=== PATIENT | male | born 1960 ===

== ENCOUNTER 2018-10-25 11:31 | Observation (INO) | payer MEDICAID, OTHER ==
[2018-10-25 14:54] LABS: BASO % 0.4 % (0.0-2.0); EOS # 0.2 K/uL (0.0-0.7); EOS % 3.6 % (0.0-4.0); HEMOGLOBIN 14.7 g/dL (12.0-18.0); LYMPH # 2.1 K/uL (1.0-4.3); LYMPH % 32.9 % (20.0-40.0); MEAN CELL VOLUME 94.1 fL (80.0-94.0); MEAN CORPUSCULAR HEMOGLOBIN 31.7 pg (27.0-31.0); MEAN CORPUSCULAR HGB CONC 33.7 g/dL (33.0-37.0); MEAN PLATELET VOLUME 9.7 fL (7.2-11.7); MONO # 0.7 K/uL (0.0-0.8); MONO % 11.1 % (0.0-10.0); NEUT # 3.2 K/uL (1.8-7.0); NRBC % 0.1 % (0.0-2.0); RBC 4.64 Mil/uL (4.40-5.90); RED CELL DISTRIBUTION WIDTH 13.1 % (11.5-14.5); WHITE BLOOD COUNT 6.2 K/uL (4.8-10.8)
--- NOTE | 2018-10-25 14:57 | RAD ---
Date of service: 10/25/2018 PROCEDURE: CHEST RADIOGRAPH, 1 VIEW HISTORY: CHEST PAIN COMPARISON: None available. FINDINGS: LUNGS: Clear. PLEURA: No pneumothorax or pleural fluid seen. CARDIOVASCULAR: No aortic atherosclerotic calcification present. Normal. OSSEOUS STRUCTURES: No significant abnormalities. VISUALIZED UPPER ABDOMEN: Normal. OTHER FINDINGS: None. IMPRESSION: No active disease.
[2018-10-25 15:02] LABS: PROTHROMBIN TIME 11.2 SECONDS (9.7-12.2)
[2018-10-25 15:47] LABS: ALB/GLOB RATIO 1.5 (1.0-2.1); ALBUMIN 3.7 g/dL (3.5-5.0); ALT/SGPT 26 U/L (21-72); AST/SGOT 48 U/L (17-59); BLOOD UREA NITROGEN 9 mg/dL (9-20); CALCIUM 7.9 mg/dl (8.6-10.4); GFR NON-AFRICAN AMERICAN > 60
[2018-10-25 16:18] LABS: CK-MB < 0.22 ng/mL (0.0-3.38)
[2018-10-25] MEDS ORDERED: Nitroglycerin 2% Ointment Foilpak UD TOP ONE (17:33)
[2018-10-25] MEDS ORDERED: Nitroglycerin 2% Ointment Foilpak UD TOP STA (17:43)
--- NOTE | 2018-10-25 17:44 | CP.PCM.HP ---
History of Present Illness - History of Present Illness History of Present Illness: PGY-1 History and Physical [address] Dr[address] Decker Patient is a 57 year old M with no significant past medical history originally from the [place] who presents to ED with constant substernal chest pain for "many weeks" with radiation to back and down L arm up to elbow. Patient states pain was sudden in onset, rates 7/10 in severity, with associated headache. He only took Advil and Motrin at home, which did not help alleviate pain. Denies fevers/chills, dizziness, acute changes in vision, palpitations, sob, cough, abdominal pain, n/v/d/c, dysuria, or changes in stool. PMHx: none PSHx: tooth procedures in Allergies: NKDA Home Medications: denies FHx: mother--DM, heart condition Social Hx: former smoker--1 cigarette/day for many years, quit 22 years ago; social drinker, denies illicit drug use. Originally from [place]: none Present on Admission - Present on Admission Any Indicators Present on Admission: No Review of Systems - Review of Systems All systems: reviewed and no additional remarkable complaints except Review of Systems: as per HPI - Constitutional Constitutional: absent: Chills, Fever, Weakness - EENT Eyes: absent: Blurred Vision, Change in Vision - Cardiovascular Cardiovascular: Chest Pain. absent: Dyspnea, Pain Radiating to Arm/Neck/Jaw, Leg Edema, Syncope - Respiratory Respiratory: absent: Cough, Dyspnea - Gastrointestinal Gastrointestinal: absent: Abdominal Pain, Diarrhea, Nausea, Vomiting - Genitourinary Genitourinary: absent: Dysuria, Urinary Frequency, Urinary Urgency - Musculoskeletal Musculoskeletal: Arthralgias. absent: Numbness, Tingling - Neurological Neurological: Headaches. absent: Dizziness, Numbness, Tingling, Weakness - Psychiatric Psychiatric: As Per HPI - Endocrine Endocrine: As Per HPI Meds Allergies/Adverse Reactions: Allergies Allergy/AdvReac Type Severity Reaction Status Date / Time No Known Allergies Allergy Unverified 10/25/18 15:10 Physical Exam - Constitutional Appears: Non-toxic, No Acute Distress - Head Exam Head Exam: ATRAUMATIC, NORMAL INSPECTION, NORMOCEPHALIC - Eye Exam Eye Exam: EOMI, Normal appearance, PERRL Pupil Exam: NORMAL ACCOMODATION - ENT Exam ENT Exam: Mucous Membranes Moist, Normal Exam - Neck Exam Neck exam: Positive for: Full Rom, Normal Inspection. Negative for: Tenderness - Respiratory Exam Respiratory Exam: Chest Wall Tenderness, Clear to Auscultation Bilateral, NORMAL BREATHING PATTERN. absent: Accessory Muscle Use, Rales, Rhonchi, Wheezes, Respiratory Distress, Stridor - Cardiovascular Exam Cardiovascular Exam: REGULAR RHYTHM, +S1, +S2 - GI/Abdominal Exam GI & Abdominal Exam: Normal Bowel Sounds, Soft. absent: Distended, Firm, Guarding, Organomegaly, Rebound, Rigid, Tenderness - Extremities Exam Extremities exam: Positive for: full ROM, normal capillary refill, normal inspection, pedal pulses present. Negative for: calf tenderness, pedal edema - Back Exam Back exam: NORMAL INSPECTION - Neurological Exam Neurological exam: Alert, CN II-XII Intact, Oriented x3 - Psychiatric Exam Psychiatric exam: Normal Affect, Normal Mood - Skin Skin Exam: Dry, Intact, Normal Color, Warm Results - Labs Result Diagrams: 10/25/18 14:49 10/25/18 15:18 Labs: Laboratory Results - last 24 hr 10/25/18 10/25/18 10/25/18 14:49 14:49 15:18 WBC 6.2 RBC 4.64 Hgb 14.7 Hct 43.7 MCV 94.1 H MCH 31.7 H MCHC 33.7 RDW 13.1 Plt Count 239 MPV 9.7 Neut % (Auto) 52.0 Lymph % (Auto) 32.9 [place] % (Auto) 11.1 H Eos % (Auto) 3.6 Baso % (Auto) 0.4 Neut # (Auto) 3.2 Lymph # (Auto) 2.1 [place] # (Auto) 0.7 Eos # (Auto) 0.2 Baso # (Auto) 0.0 PT 11.2 INR 1.0 APTT 32 Sodium 140 Potassium 3.6 Chloride 106 Carbon Dioxide 29 Anion Gap 8 L BUN 9 Creatinine 0.9 Est GFR ( Amer) > 60 Est GFR (Non-Af Amer) > 60 Random Glucose 83 Calcium 7.9 L Total Bilirubin 0.5 AST 48 ALT 26 Alkaline Phosphatase 83 Total Creatine Kinase 75 CK-MB (Mass) < 0.22 Troponin I < 0.0120 Total Protein 6.2 L Albumin 3.7 Globulin 2.4 Albumin/Globulin Ratio 1.5 Assessment & Plan - Assessment and Plan (Free Text) Assessment: 57 year old M with no significant past medical history presenting to ED with substernal chest pain radiating to back for several weeks, tenderness elicited to palpation--likely costochondral, r/o ACS Plan: Chest pain, r/o ACS likely costochondritis -pain elicited to palpation -patient in no acute distress, vitals stable -s/p ASA, nitrol SL x2 in ED -JUNE panel x 1 negative, f/u #2 and #3 -EKG: NSR @ 69 bpm, moderate criteria for LVH -f/u EKG 2 and 3 -CXR: no acute findings -A1C -lipid panel -thyroid panel -ASA 81 mg PO daily -acetaminophen prn for headache PPx, Diet, Disposition -DVT ppx: scds -Diet: HHD Case discussed with Dr. Decker
[2018-10-25 20:51] LABS: HDL CHOLESTEROL 50 mg/dL (30-70)
[2018-10-25 21:01] LABS: LDL CHOLESTEROL 86 mg/dL (0-129)
[2018-10-25 21:05] LABS: CK-MB < 0.22 ng/mL (0.0-3.38)
[2018-10-26 03:13] VITALS: RESP 20
[2018-10-26 03:19] LABS: CK-MB < 0.22 ng/mL (0.0-3.38)
[2018-10-26 04:22] VITALS: O2SAT 97
[2018-10-26 07:01] VITALS: PULSE 68
[2018-10-26 07:17] LABS: BASO % 0.3 % (0.0-2.0); EOS # 0.3 K/uL (0.0-0.7); EOS % 3.5 % (0.0-4.0); HEMOGLOBIN 14.2 g/dL (12.0-18.0); LYMPH # 2.4 K/uL (1.0-4.3); LYMPH % 30.6 % (20.0-40.0); MEAN CELL VOLUME 93.9 fL (80.0-94.0); MEAN CORPUSCULAR HEMOGLOBIN 31.4 pg (27.0-31.0); MEAN CORPUSCULAR HGB CONC 33.4 g/dL (33.0-37.0); MEAN PLATELET VOLUME 9.8 fL (7.2-11.7); MONO # 0.9 K/uL (0.0-0.8); MONO % 10.8 % (0.0-10.0); NEUT # 4.4 K/uL (1.8-7.0); NEUT % 54.8 % (50.0-75.0); NRBC % 0.1 % (0.0-2.0); RBC 4.53 Mil/uL (4.40-5.90); RED CELL DISTRIBUTION WIDTH 13.2 % (11.5-14.5)
[2018-10-26 07:41] LABS: ALB/GLOB RATIO 1.5 (1.0-2.1); ALBUMIN 3.9 g/dL (3.5-5.0); ALT/SGPT 23 U/L (21-72); AST/SGOT 28 U/L (17-59); BLOOD UREA NITROGEN 15 mg/dL (9-20); CALCIUM 8.7 mg/dl (8.6-10.4); GFR NON-AFRICAN AMERICAN > 60
[2018-10-26 08:57] LABS: BARBITURATES, UR NEGATIVE (NEGATIVE); BENZODIAZEPINES, UR NEGATIVE (NEGATIVE); OPIATES, UR NEGATIVE (NEGATIVE); PHENCYCLIDINE, UR NEGATIVE (NEGATIVE)
--- NOTE | 2018-10-26 09:36 | CP.PCM.DIS ---
Provider - Provider Date of Admission: 10/25/18 17:42 Attending physician: Deepali Holcomb DO Time Spent in preparation of Discharge (in minutes): 40 Hospital Course - Lab Results Lab Results: Most Recent Lab Values WBC 8.0 K/uL (4.8-10.8) 10/26/18 06:58 RBC 4.53 Mil/uL (4.40-5.90) 10/26/18 06:58 Hgb 14.2 g/dL (12.0-18.0) 10/26/18 06:58 Hct 42.6 % (35.0-51.0) 10/26/18 06:58 MCV 93.9 fL (80.0-94.0) 10/26/18 06:58 MCH 31.4 pg (27.0-31.0) H 10/26/18 06:58 MCHC 33.4 g/dL (33.0-37.0) 10/26/18 06:58 RDW 13.2 % (11.5-14.5) 10/26/18 06:58 Plt Count 232 K/uL (130-400) 10/26/18 06:58 MPV 9.8 fL (7.2-11.7) 10/26/18 06:58 Neut % (Auto) 54.8 % (50.0-75.0) 10/26/18 06:58 Lymph % (Auto) 30.6 % (20.0-40.0) 10/26/18 06:58 [place] % (Auto) 10.8 % (0.0-10.0) H 10/26/18 06:58 Eos % (Auto) 3.5 % (0.0-4.0) 10/26/18 06:58 Baso % (Auto) 0.3 % (0.0-2.0) 10/26/18 06:58 Neut # (Auto) 4.4 K/uL (1.8-7.0) 10/26/18 06:58 Lymph # (Auto) 2.4 K/uL (1.0-4.3) 10/26/18 06:58 [place] # (Auto) 0.9 K/uL (0.0-0.8) H 10/26/18 06:58 Eos # (Auto) 0.3 K/uL (0.0-0.7) 10/26/18 06:58 Baso # (Auto) 0.0 K/uL (0.0-0.2) 10/26/18 06:58 PT 11.2 SECONDS (9.7-12.2) 10/25/18 14:49 INR 1.0 10/25/18 14:49 APTT 32 SECONDS (21-34) 10/25/18 14:49 Sodium 136 mmol/L (132-148) 10/26/18 06:58 Potassium 3.7 mmol/L (3.6-5.2) 10/26/18 06:58 Chloride 100 mmol/L (98-107) 10/26/18 06:58 Carbon Dioxide 29 mmol/L (22-30) 10/26/18 06:58 Anion Gap 11 (10-20) 10/26/18 06:58 BUN 15 mg/dL (9-20) 10/26/18 06:58 Creatinine 1.1 mg/dL (0.8-1.5) 10/26/18 06:58 Est GFR ( Amer) > 60 10/26/18 06:58 Est GFR (Non-Af Amer) > 60 10/26/18 06:58 Random Glucose 95 mg/dL (75-110) 10/26/18 06:58 Hemoglobin A1c 5.7 % (4.2-6.5) 10/25/18 20:30 Calcium 8.7 mg/dl (8.6-10.4) 10/26/18 06:58 Phosphorus 3.4 mg/dL (2.5-4.5) 10/26/18 06:58 Magnesium 1.8 mg/dL (1.6-2.3) 10/26/18 06:58 Total Bilirubin 0.4 mg/dL (0.2-1.3) 10/26/18 06:58 AST 28 U/L (17-59) 10/26/18 06:58 ALT 23 U/L (21-72) 10/26/18 06:58 Alkaline Phosphatase 91 U/L (38-126) 10/26/18 06:58 Total Creatine Kinase 69 U/L (55-170) 10/26/18 02:03 CK-MB (Mass) < 0.22 ng/mL (0.0-3.38) 10/26/18 02:03 Troponin I < 0.0120 ng/mL (0.00-0.120) 10/26/18 02:03 Total Protein 6.5 g/dL (6.3-8.3) 10/26/18 06:58 Albumin 3.9 g/dL (3.5-5.0) 10/26/18 06:58 Globulin 2.6 gm/dL (2.2-3.9) 10/26/18 06:58 Albumin/Globulin Ratio 1.5 (1.0-2.1) 10/26/18 06:58 Triglycerides 160 mg/dL (0-149) H 10/25/18 20:30 Cholesterol 149 mg/dL (0-199) 10/25/18 20:30 LDL Cholesterol Direct 86 mg/dL (0-129) 10/25/18 20:30 HDL Cholesterol 50 mg/dL (30-70) 10/25/18 20:30 Free T4 0.75 ng/dL (0.78-2.19) L 10/26/18 07:05 TSH 3rd Generation 0.73 mIU/L (0.46-4.68) 10/25/18 20:30 Urine Opiates Screen Negative (NEGATIVE) 10/25/18 07:18 Urine Methadone Screen Negative (NEGATIVE) 10/25/18 07:18 Ur Barbiturates Screen Negative (NEGATIVE) 10/25/18 07:18 Ur Phencyclidine Scrn Negative (NEGATIVE) 10/25/18 07:18 Ur Amphetamines Screen Negative (NEGATIVE) 10/25/18 07:18 U Benzodiazepines Scrn Negative (NEGATIVE) 10/25/18 07:18 U Oth Cocaine Metabols Negative (NEGATIVE) 10/25/18 07:18 - Hospital Course Hospital Course: HPI: Patient is a 57 year old M with no significant past medical history originally from the [place] who presents to ED with constant substernal chest pain for "many weeks" with radiation to back and down L arm up to elbow. Patient states pain was sudden in onset, rates 7/10 in severity, with associated headache. He only took Advil and Motrin at home, which did not help alleviate pain. Denies fevers/chills, dizziness, acute changes in vision, p alpitations, sob, cough, abdominal pain, n/v/d/c, dysuria, or changes in stool. During course of admission: Serial troponins and serial EKG demonstrated no acute findings. Chest X-ray obtained was negative. Lipid panel, thyroid panel, and Hemoglobin A1C were obtained and within normal limits. Patient was started on aspirin and given Tylenol as needed for headaches. Chest pain improved during course of admission, likely musculoskeletal in nature as pain was elicited upon palpation. Patient was instructed to take OTC meds--Tylenol, Motrin, Advil as needed for pain. Patient was in no acute distress, vitals remained stable during course of admission. Patient is medically stable for discharge to home, as per Dr. Decker. Patient is instructed to follow up at [facility] within 1 week of discharge for continued care. Contact information is provided below, please call to [place] [address] If symptoms worsen, please return to the ED immediately. The following is a summary of hospital course. For full detail, please refer to EMR. - Date & Time of H&P Date of H&P: 10/26/18 Time of H&P: 13:07 Discharge Exam - Head Exam Head Exam: ATRAUMATIC, NORMAL INSPECTION, NORMOCEPHALIC - Eye Exam Eye Exam: EOMI, Normal appearance Pupil Exam: NORMAL ACCOMODATION - ENT Exam ENT Exam: Mucous Membranes Moist, Normal Exam - Neck Exam Neck exam: Full Rom, Normal Inspection - Respiratory Exam Respiratory Exam: Clear to PA & Lateral, NORMAL BREATHING PATTERN, UNREMARKABLE. absent: Accessory Muscle Use, Rales, Rhonchi, Wheezes, Respiratory Distress, Stridor - Cardiovascular Exam Cardiovascular Exam: REGULAR RHYTHM, +S1, +S2 - GI/Abdominal Exam GI & Abdominal Exam: Normal Bowel Sounds, Soft, Unremarkable. absent: Distended, Firm, Guarding, Rebound, Rigid, Tenderness - Extremities Exam Extremities exam: full ROM, normal capillary refill, normal inspection, pedal pulses present - Back Exam Back exam: NORMAL INSPECTION - Neurological Exam Neurological exam: Alert, Normal Gait, Oriented x3 - Skin Skin Exam: Dry, Intact, Normal Color, Warm Discharge Plan - Follow Up Plan Condition: GOOD Disposition: HOME/ ROUTINE Instructions: Costochondritis, Chest Pain That Is Not Caused by the Heart (DC) Additional Instructions: Patient is medically stable for discharge to home, as per Dr. Decker. Patient is instructed to follow up at [facility] within 1 week of discharge for continued care. Contact information is provided below, please call to schedule an appointment. [facility] [place] [address] Patient is instructed to take over the counter medications for musculoskeletal pain--Tylenol, Motrin or Advil. Please take as indicated. If symptoms worsen, please return to the ED immediately. El paciente est mdicamente estable para el [facility] hospital[facility], segn el Dr. Decker. Se le indica al paciente que lg un seguimiento en [facility] en [facility] dentro de la primera semana despus del yumiko para recibir atencin continua. La informacin de contacto se proporciona a continuacin, llame para programar janes jessie. [facility] [place] [address] [place]: [phone] Se instruye al paciente para que tome medicamentos de venta susan para el dolor musculoesqueltico: Tylenol, Motrin o Advil. Por favor tome john se indica. Si los sntomas empeoran, regrese al servicio de urgencias inmediatamente.
[2018-10-26] MEDS ORDERED: Enoxaparin 40 mg Syringe SC SCH (10:00)
[2018-10-26 12:42] VITALS: BP 97/58; TEMP 97.5
--- NOTE | 2018-10-26 14:47 | CARD ---
APPROVED REPORT Date of service: 10/26/2018 EKG Measurement Heart [id number] <Conclusion> Sinus rhythm with occasional premature ventricular complexes and fusion complexes Otherwise normal ECG
--- NOTE | 2018-10-26 23:20 | CARD ---
APPROVED REPORT Date of service: 10/25/2018 EKG Measurement Heart [id number] <Conclusion> Sinus rhythm with occasional premature ventricular complexes Moderate voltage criteria for LVH, may be normal variant Borderline ECG
--- NOTE | 2018-10-26 23:21 | CARD ---
APPROVED REPORT Date of service: 10/25/2018 EKG Measurement Heart [id number] <Conclusion> Normal sinus rhythm Moderate voltage criteria for LVH, may be normal variant Borderline ECG
== END 2018-10-26 13:58 | disposition home or self-care (01) ==
LOC: C.ER 11:31 → C.9E 17:42 → C.6T 18:47
PROVIDERS: ADMIT Hospitalist; ATTEND Hospitalist
DX: R07.89 Other chest pain (principal); R51 Headache; Z83.3 Family history of diabetes mellitus; Z87.891 Personal history of nicotine dependence
CPT/HCPCS: 36415; 71045; 80053; 80061; 80324; 80345; 80346; 80349; 80353; 80358; 80361; 83036; 83735; 83992; 84100; 84439; 84443; 84484; 85025; 85610; 85730; 93005; 99281; G0378; J1650